=== PATIENT | male | born 1995 ===

== ENCOUNTER 2016-09-23 15:43 | Emergency (ER) | payer OTHER ==
[2016-09-23 16:11] VITALS: BP 110/72; PULSE 84; RESP 20; TEMP 98.1; O2SAT 96
--- NOTE | 2016-09-23 17:44 | C.PDOC ---
History Of Present Illness 21 year old patient presents to the ED complaining of left knee pain for 1 week. Patient reports he went running a week ago. He stepped into a dip and felt his knee going backwards. Initially it was swollen and painful. He applied ice and [place] for the past week. The swelling has greatly reduced, but the pain has been persistent. Patient denies fever, numbness or weakness. Time Seen by Provider: 09/23/16 17:36 Chief Complaint (Nursing): Lower Extremity Problem/Injury History Per: Patient History/Exam Limitations: no limitations Onset/Duration Of Symptoms: Other (1 week ago) Current Symptoms Are (Timing): Still Present Severity: Mild Pain Scale Rating Of: 3 Recent travel outside of the [place]: No Past Medical History Reviewed: Historical Data, Nursing Documentation, Vital Signs Vital Signs: Last Vital Signs Temp 98.1 F 09/23/16 16:09 Pulse 84 09/23/16 16:09 Resp 20 09/23/16 16:09 BP 110/72 09/23/16 16:09 Pulse Ox 96 09/23/16 23:25 Family History: States: Unknown Family Hx - Social History Hx Alcohol Use: Yes Hx Substance Use: No - Immunization History Hx Tetanus Toxoid Vaccination: No Hx Influenza Vaccination: No Hx Pneumococcal Vaccination: No Review Of Systems Constitutional: Negative for: Fever Musculoskeletal: Positive for: Other (left knee). Negative for: Neck Pain Neurological: Negative for: Weakness, Numbness Physical Exam - Physical Exam Appears: Non-toxic, No Acute Distress Skin: Warm, Dry Extremity: Normal ROM, No Pedal Edema, No Calf Tenderness, Capillary Refill (<2 seconds), No Deformity, Other (left knee: minimal swelling to the medial aspect of the patella. full ROM to the knee. no eryhtema or warmth. (-)deformities) Neurological/Psych: Oriented x3, Normal Motor, Normal Sensation ED Course And Treatment O2 Sat by Pulse Oximetry: 96 (room air) Pulse Ox Interpretation: Normal Progress Note: Plan: Motrin Disposition Counseled Patient/Family Regarding: Diagnosis, Need For Followup, Rx Given - Disposition Referrals: Vinay Dimas MD [Staff Provider] - Priyank Cassidy MD [Medical Doctor] - Disposition: HOME/ ROUTINE Disposition Time: 17:42 Condition: STABLE Additional Instructions: Wear knee support for comfort. COld compresses to knee several times a day. Ibuprofen 600 mg by mouth every 6 hours with food. Follow up with orthopedics in a few days if pain persists. Prescriptions: Ibuprofen [Motrin] 600 mg PO TID #30 tab Instructions: Knee Sprain (ED) Forms: General Discharge Instructions - Clinical Impression Clinical Impression: Left knee sprain - PA / ATOMIC PHYSICS PROFESSOR / Resident Statement MD/DO has reviewed & agrees with the documentation as recorded. - Scribe Statement The provider has reviewed the documentation as recorded by the Scribe Madhuri Flynn All medical record entries made by the Scribe were at my direction and personally dictated by me. I have reviewed the chart and agree that the record accurately reflects my personal performance of the history, physical exam, medical decision making, and the department course for this patient. I have also personally directed, reviewed, and agree with the discharge instructions and disposition.
== END 2016-09-23 17:50 | disposition home or self-care (01) ==
LOC: C.ER 15:43
DX: S83.92XA Sprain of unspecified site of left knee, initial encounter (principal); X58.XXXA Exposure to other specified factors, initial encounter; Y93.02 Activity, running